=== PATIENT | female | born 1990 | race Two or more races ===

== ENCOUNTER 2016-08-03 04:39 | Inpatient (IN) | payer OTHER ==
[~2016-08-03 04:39] MED LIST: CITRIC ACID/SODIUM CITRATE 30 ML UNIT-DOSE CUP PO ONE; ELECTROLYTE-148 SOLN 500 ML IV SCH
[2016-08-03] MEDS ORDERED: ELECTROLYTE-148 SOLN 1,000 ML IV SCH (05:09)
[2016-08-03 05:24] VITALS: BMI 52.1
--- NOTE | 2016-08-03 06:30 | HP ---
Past Medical History - Admission Chief Complaint: "I broke my water" History of Present Illness: 26 y/o with SIUP at 39.3 weeks gestation here with complaints of rupturing her membranes for clear fluid at 420 this a.m. Pt was scheduled for a repeat section today - has h/o previous section X 2. Pt has history of pre Eclampsia with prior - none this . Had one isolated mildly elevated BP on 07/26/16. Was on baby ASA intermittently. Did follow with MFM. EFW on most recent ultrasound on 07/18/16 showed 63%ile/ 6lb 12oz. Pt is RH negative. GBS negative. HIV negative. HepBSag negative. RPR negative. Rubella Immune. History Source: Patient, Medical Record Limitations to Obtaining History: No Limitations - Past Medical History Cardiovascular: Yes: HTN (h/o pre eclampsia/gestational hypertension with prior pregnancies) Pulmonary: No: Asthma, Bronchitis, Pneumonia Gastrointestinal: No: GERD Hepatobiliary: No: Hepatitis B Reproductive: No: Ectopic , Endometriosis, Fibroids, PID ...: 6 ...Para: 2 ...Term: 1 ...: 1 ...Spon : 2 ...Induced : 1 ...Multiple Gestation: 0 ...LMP: 11/17/15 ...EDC by Sono: 08/07/16 Heme/Onc: No: Anemia, Sickle Cell Disease Infectious Disease: No: AIDS, HIV, MRSA Psych: No: Anxiety, Bipolar, Depression Rheumatology: No: Lupus, Rheumatoid Arthritis ENT: No: Allergic Rhinitis Endocrine: No: Diabetes Mellitus, Hypothyroidism Additional Medical History: Obesity - Past Surgical History Past Surgical History: Yes: Hx Myomectomy: No Hx Transabdominal Cerclage: No - Smoking History Smoking history: Never smoked Have you smoked in the past 12 months: No Aproximately how many cigarettes per day: 0 - Alcohol/Substance Use Hx Alcohol Use: No History of Substance Use: reports: None - Social History Usual Living Arrangement: Yes: With Spouse, Assisted Living ADL: Independent History of Recent Travel: No Home Medications - Allergies Allergies/Adverse Reactions: Allergies Allergy/AdvReac Type Severity Reaction Status Date / Time shellfish derived Allergy Mild pruritis Verified 08/03/16 05:04 shrimp Allergy Verified 08/03/16 05:25 - Home Medications Home Medications: Ambulatory Orders Vitamins (Sjr) - 1 tab PO DAILY 08/03/16 Review of Systems - Review of Systems Constitutional: reports: No Symptoms Eyes: reports: No Symptoms HENT: reports: No Symptoms Neck: reports: No Symptoms Cardiovascular: reports: No Symptoms Respiratory: reports: No Symptoms Gastrointestinal: reports: No Symptoms Genitourinary: reports: Discharge (leaking clear fluid). denies: Vaginal Bleeding Breasts: reports: No Symptoms Reported Musculoskeletal: reports: No Symptoms Integumentary: reports: No Symptoms Neurological: reports: No Symptoms Endocrine: reports: No Symptoms Hematology/Lymphatic: reports: No Symptoms Psychiatric: reports: No Symptoms Physical Exam - Maternity Vital Signs: Vital Signs Temperature 98.0 F 08/03/16 05:14 Pulse Rate 84 08/03/16 06:00 Respiratory Rate 19 08/03/16 06:00 Blood Pressure 140/85 08/03/16 06:00 O2 Sat by Pulse Oximetry (%) Constitutional: Yes: Well Nourished, Calm HENT: Yes: Atraumatic, Normocephalic Neck: Yes: Supple, Trachea Midline Cardiovascular: Yes: Regular Rate and Rhythm Lungs: Clear to auscultation - Abdominal Exam/OB Fundal Height: 40 Number of Fetuses: Single Presentation: Vertex Contractions: Yes Regularity: Regular Intensity: Moderate Heart Rate (range): 125 Category: I Accelerations: Uniform Decelerations: None - Vaginal Exam/OB Vaginal Bleediing: No Amniotic Membrane Status: Ruptured Nitrazine Test: Positive Amniotic Fluid: Yes: Clear - Physical Exam Extremities: Yes: WNL Edema: Yes (1+ non pitting LE edema) Edema: LLE: 1+, RLE: 1+ Psychiatric: Yes: Alert, Oriented Hemorrhage Risk Assessment - Risk Factors Medium Risk Factors: Yes: Prior , uterine surgery,or multiple laparotomies, Obesity (BMI >40) Risk Score: 2 Risk Level: High Risk Problem List - Problems (1) Spontaneous rupture of amniotic membranes Code(s): [id number] - (2) Term , repeat Code(s): Z34.90 - ENCNTR FOR SUPRVSN OF NORMAL , UNSP, UNSP TRIMESTER (3) History of delivery Code(s): Z98.891 - HISTORY OF UTERINE SCAR FROM PREVIOUS SURGERY (4) Obesity affecting in third trimester Code(s): O99.213 - OBESITY COMPLICATING , THIRD TRIMESTER Assessment/Plan 26 y/o with SIUP at 39.3 weeks gestation, SROM and labor, history of prior section and was scheduled for repeat delivery today at 10am [facility] - plan for repeat section - nursing and anesthesia aware. Pt has been NPO since 11pm. Apply SCDs. Shave and prep abdomen. Insert taylor catheter. - consents signed, r/b/a discussed - GBS negative
[2016-08-03] MEDS ORDERED: oxyCODONE HCL 5 MG TABLET PO PRN ×2 (08:22)
[2016-08-03] MEDS ORDERED: IBUPROFEN 800 MG/8 ML IJ IVPB PRN ×2 (08:22→08:40)
[2016-08-03] MEDS ORDERED: METHYLERGONOVINE MALEATE 0.2 MG/1 ML AMP IM PRN (08:22)
--- NOTE | 2016-08-03 08:30 | OP ---
Operative Note - Note: Operative Date: 08/03/16 Pre-Operative Diagnosis: SIUP at 39.3 weeks gestation, SROM, labor, history of c section X 2 Operation: repeat low transverse c section Post-Operative Diagnosis: Same as Pre-op Surgeon: Maritza Kaur Diplomatic Officer: Johnny Us Anesthesiologist/SOLAR PANEL INSTALLER: Theodore Cabral Anesthesia: Spinal Specimens Removed: placenta Estimated Blood Loss (mls): 700 Operative Report Dictated: Yes
[2016-08-03] MEDS ORDERED: ONDANSETRON 4 MG/2 ML VIAL IVPUSH PRN (08:41)
[2016-08-03] MEDS: OXYTOCIN 20 UNITS in 0.9% NS 1,000 ML IV SCH ×2 (09:42→15:03)
[2016-08-03] MEDS ORDERED: ENOXAPARIN NA (PORCINE) 40 MG/0.4 ML DISP.SYRIN SQ SCH (10:00)
[2016-08-03] MEDS ORDERED: TUBERCULIN PPD 5 TU/0.1ML SYRINGE (IN PATIENT USE ONLY) ID ONE (10:00)
[2016-08-03] MEDS: FERROUS SO4 325 MG TABLET (FP) PO SCH ×2 (10:16→22:24)
[2016-08-03] MEDS: PRENATAL VITAMINS W/ FOLIC ACID TABLET (FP) PO SCH (10:16)
--- NOTE | 2016-08-03 12:10 | SURG ---
Surgery Religion Professor Note Religion Professor: Johnny Us PA-C Date of Service: 08/03/16 Diagnosis: SIUP at 39.3 weeks gestation, SROM, labor, history of c section X 2 Procedure: R epeat low transverse c section I was present for the entirety of the operative procedure. For further detail, please refer to operative report. Visit type - Case Type Case Type: Scheduled Admission - New patient This patient is new to me today: Yes Date on this admission: 08/03/16
--- NOTE | 2016-08-03 14:01 | OP ---
DATE OF OPERATION: 08/03/2016 PREOPERATIVE DIAGNOSES: Single intrauterine at 39+ weeks gestation, history of section x2, and spontaneous rupture of membranes in labor. POSTOPERATIVE DIAGNOSES: Single intrauterine at 39+ weeks gestation, history of section x2, and spontaneous rupture of membranes in labor. PROCEDURE: Repeat low transverse section. SURGEON: Maritza Romano DO HEALTH PROFESSIONAL: MARIAA Escobar ESTIMATED BLOOD LOSS: 700 mL. ANESTHESIA: Spinal anesthesia by Dr. Theodore Cabral. SPECIMENS REMOVED: Included placenta. FINDINGS: Included normal bilateral tubes and ovaries. COMPLICATIONS: None. COUNTS: Sponge, needle, and instrument count correct. DISPOSITION: Stable to PACU. BRIEF HISTORY AND PROCEDURE: Patient is a 26-year-old female who arrived to labor and delivery on the morning of August 03, 2016, complaining of leaking fluid. Patient was found to have spontaneous rupture of membranes. Patient was scheduled for a repeat earlier in the day. Patient was admitted to the hospital and plan was made to proceed with a section. Consents were signed. The patient was then taken back to the operating room and she was given spinal anesthesia by Dr. Theodore Cabral and placed in the dorsal supine position on the operating room table. A Woods catheter was placed under sterile conditions. Patient was prepped and draped in the usual sterile fashion and a hard timeout was performed. A Pfannenstiel skin incision was created in the skin with a scalpel and carried to the underlying layer of rectus fascia with the Bovie. The fascia was incised on either side of the midline and the fascial incision was carried in a superolateral direction with the Bovie. The fascia was tented upward and dissected off the underlying layer of rectus muscle with the Bovie. The musculature was bluntly and the peritoneum was entered sharply to allow for adequate room for delivery. A bladder blade was then inserted. A bladder flap was created and the bladder blade was readjusted to protect the bladder. A transverse incision in the lower uterine segment was completed with a scalpel and the incision was carried in a superolateral direction bluntly. The was then delivered from the ROT position. A loose nuchal cord was noted. The remainder of the , including bilateral shoulders, delivered without difficulty. The 3-vessel cord was noted which was clamped and cut. The was then taken over to the warmer to be assessed by the nursing staff where the Apgars were 9 and 9. Female was noted to weigh 7 pounds 4 ounces and was 19 inches long. Attention was then turned to the placenta which was delivered manually and intact. The uterus was exteriorized from the abdomen, inspected, and cleared of all amniotic membrane and debris with a dry lap sponge. Bilateral tubes and ovaries were noted to be within normal limits. The hysterotomy was reapproximated using 1 Vicryl in a running locked fashion. The posterior cul-de-sac was suctioned. Bilateral tubes and ovaries again were noted to be normal. The uterus was placed back into the abdomen. Inspection of the hysterotomy revealed some areas of bleeding, so a 2nd imbricating layer with 0 Biosyn suture was completed. Excellent hemostasis was achieved. Bilateral gutters were inspected and cleared of all debris and blood clot. The peritoneum was reapproximated using 2-0 chromic suture in a running fashion. The musculature was reapproximated in a single interrupted suture using 0 Biosyn suture. The fascia was reapproximated using 1 Vicryl in a running locked fashion. The subcutaneous tissue was irrigated and reapproximated using interrupted sutures and the skin was reapproximated using ciaran. Patient tolerated the procedure well. Was recovering in stable condition in the unit at the time of this dictation. MARITZA ROMANO DO /[id number]
[2016-08-04] MEDS ORDERED: BISACODYL 10 MG SUPP.RECT RC PRN (08:26)
[2016-08-04 08:47] LABS: BASOPHIL 0.3 % (0-2.0); EOSINOPHIL 0.5 % (0-4.5); MCH 28.8 pg (25.7-33.7); MCHC 33.5 g/dl (32.0-36.0); MEAN CELL VOLUME 85.7 fl (80-96); MEAN PLT VOLUME 9.9 fl (7.5-11.1); NEUTROPHILS 75.7 % (42.8-82.8); PLATELET COUNT 189 K/MM3 (134-434); RDW 14.2 % (11.6-15.6); WHITE BLOOD COUNT 9.5 K/mm3 (4.0-10.0)
[2016-08-04] MEDS: FERROUS SO4 325 MG TABLET (FP) PO SCH ×2 (09:15→21:15)
[2016-08-04] MEDS: PRENATAL VITAMINS W/ FOLIC ACID TABLET (FP) PO SCH (09:15)
[2016-08-04] MEDS: ENOXAPARIN NA (PORCINE) 40 MG/0.4 ML DISP.SYRIN SQ SCH (09:16)
--- NOTE | 2016-08-04 09:16 | PN ---
Post Progress Note - Subjective Subjective: PT seen/evaluated and doing well. Pain controlled. OOB ambulating without difficulty. Lochia moderate and decreasing. Denies CP/SOB/F/C/PIERRE. No flatus yet. No void yet. Type of Delivery: Repeat C/S Vital Signs: Vital Signs Temperature 98 F 08/04/16 06:00 Pulse Rate 76 08/04/16 06:00 Respiratory Rate 18 08/04/16 07:00 Blood Pressure 121/66 08/04/16 06:00 O2 Sat by Pulse Oximetry (%) 99 08/03/16 09:41 Uterus: Yes: Fundus Firm, Fundus below umbilicus Incision: Yes: Dressing dry and intact Abdomen/GI: Yes: Abdomen soft, Tolerating PO. No: Tender Lochia, amount: Moderate Extremities: Yes: Edema (LE edema, +1, nonpitting bilaterally) Perineum: Yes: Intact Activity: Ambulating - Labs Labs: CBC WBC 9.5 K/mm3 (4.0-10.0) 08/04/16 08:00 RBC 4.16 M/mm3 (3.60-5.2) 08/04/16 08:00 Hgb 11.9 GM/dL (10.7-15.3) 08/04/16 08:00 Hct 35.6 % (32.4-45.2) 08/04/16 08:00 MCV 85.7 fl (80-96) 08/04/16 08:00 MCHC 33.5 g/dl (32.0-36.0) 08/04/16 08:00 RDW 14.2 % (11.6-15.6) 08/04/16 08:00 Plt Count 189 K/MM3 (134-434) 08/04/16 08:00 MPV 9.9 fl (7.5-11.1) 08/04/16 08:00 Neutrophils % 75.7 % (42.8-82.8) 08/04/16 08:00 Lymphocytes % 19.2 % (8-40) 08/04/16 08:00 Monocytes % 4.3 % (3.8-10.2) 08/04/16 08:00 Eosinophils % 0.5 % (0-4.5) 08/04/16 08:00 Basophils % 0.3 % (0-2.0) 08/04/16 08:00 Problem List - Problems (1) Spontaneous rupture of amniotic membranes Code(s): JWF1604 - (2) Term , repeat Code(s): Z34.90 - ENCNTR FOR SUPRVSN OF NORMAL , UNSP, UNSP TRIMESTER (3) History of delivery Code(s): Z98.891 - HISTORY OF UTERINE SCAR FROM PREVIOUS SURGERY (4) Obesity affecting in third trimester Code(s): O99.213 - OBESITY COMPLICATING , THIRD TRIMESTER Assessment/Plan 26 y/o POD#1 s/p repeat LTCS - AFVSS - Hgb 11.9 post op - encourage ambulation, Lovenox for VTE PPx - regular diet, PO pain meds - routine care
--- NOTE | 2016-08-04 10:36 | PN ---
Progress Note (short form) - Note Progress Note: ANESTHESIOLOGY POST-OP CHECK 26F s/p repeat under spinal anesthesia POD #1. No acute complaints, ambulating, pain tolerable, voiding. Denies N/V, backache, headache, numbness, weakness. Vital Signs Temperature 97.8 F 08/04/16 10:00 Pulse Rate 90 08/04/16 10:00 Respiratory Rate 20 08/04/16 10:00 Blood Pressure 130/80 08/04/16 10:00 O2 Sat by Pulse Oximetry (%) 99 08/03/16 09:41 Active Medications Acetaminophen (Tylenol -) 650 mg PO Q4H PRN PRN Reason: FEVER OR PAIN Bisacodyl (Dulcolax Suppository -) 10 mg RC PRN PRN PRN Reason: CONSTIPATION Diphenhydramine HCl (Benadryl Injection -) 25 mg IVPUSH Q4H PRN PRN Reason: itching Last Admin: 08/03/16 10:18 Dose: 25 mg Enoxaparin Sodium (Lovenox -) 40 mg SQ DAILY [facility] Last Admin: 08/04/16 09:16 Dose: 40 mg Ferrous Sulfate (Feosol -) 325 mg PO BID [facility] Last Admin: 08/04/16 09:15 Dose: 325 mg Parenteral Electrolytes (Plasma-Lyte 148 -) 1,000 mls @ 125 mls/hr IV ASDIR [facility] Last Admin: 08/03/16 06:00 Dose: 125 mls/hr Oxytocin/Sodium Chloride (Normal Saline+20 Units Oxytocin -) 1,000 mls @ 125 mls/hr IV ASDIR [facility] Last Admin: 08/03/16 15:03 Dose: 125 mls/hr Ibuprofen (Motrin -) 600 mg PO Q4H PRN PRN Reason: PAIN Ibuprofen (Caldolor Injection -) 800 mg IVPB Q8H PRN PRN Reason: PAIN OR FEVER Last Admin: 08/03/16 23:56 Dose: 800 mg Methylergonovine Maleate (Methergine Injection -) 0.2 mg IM Q4H PRN PRN Reason: Excessive Bleeding (L&D) Last Admin: 08/03/16 10:36 Dose: 0.2 mg Oxycodone HCl (Roxicodone -) 5 mg PO Q4H PRN PRN Reason: PAIN LEVEL 1-5 Oxycodone HCl (Roxicodone -) 10 mg PO Q4H PRN PRN Reason: PAIN LEVEL 6-10 Multivit/Folic Acid/Iron ( Vitamins (Sjr) -) 1 tab PO DAILY [facility] Last Admin: 08/04/16 09:15 Dose: 1 tab Senna/Docusate Sodium (Pericolace -) 2 tablet PO HS PRN PRN Reason: CONSTIPATION Simethicone (Mylicon -) 80 mg PO Q4H PRN PRN Reason: GAS Gen: awake, alert No apparent anesthesia complications. Pain controlled. continue management as per primary team.
[2016-08-04] MEDS: ACETAMINOPHEN 325 MG TABLET (FP) PO PRN ×2 (15:08→21:16)
[2016-08-04] MEDS: SIMETHICONE 80 MG TAB.CHEW (FP) PO PRN (15:09)
--- NOTE | 2016-08-04 15:25 | PATH ---
Surgical Pathology Report Patient Name: MARK ESTES Med. Rec. #: [id number] /Age/Gender: 1990 (Age: 26) / F Account: [id number] Location: [facility] OBS/TOP HAT BODY MAKER Taken: 08/03/2016 Received: 08/03/2016 Reported: 08/04/2016 Physicians: Maritza Kaur M.D. Specimen(s) Received PLACENTA Clinical History , 39.3 weeks gestation, previous c/section in labor Repeat c/section Final Diagnosis PLACENTA, DELIVERY: FOCALLY DISRUPTED THIRD TRIMESTER PLACENTA WITH CHRONIC DECIDUITIS, MODERATE PREVILLOUS, PERIVILLOUS, AND PRECHORIONIC FIBRIN DEPOSITION, FOCAL CALCIFICATIONS, TWO VESSEL UMBILICAL CORD, AND UNREMARKABLE PLACENTAL MEMBRANES. Electronically Signed Herve Guzman M.D. Gross Description The specimen is received fresh, labeled "placenta" and is a 420 gram, 18.5 x 15.5 x 1.7 cm placenta with attached membranes and umbilical cord. The attached membranes are sumner, translucent with focal opacities and insert marginally. The umbilical cord measures 31 cm in length and averages 0.9 cm in diameter. The cord inserts eccentrically, 5 cm to the nearest margin. No true knots or strictures are identified. Cut surface of the umbilical cord reveals only 2 vessels. The surface is ponce-blue with fibrin deposition and appropriate caliber vessels. The maternal surface is red-brown with focal defects. Sectioning reveals red-brown, spongy parenchyma. No focal lesions are identified. Air Traffic Control Equipment Repairer sections are submitted in three cassettes as follows: 1- membrane rolls and umbilical cord; 2-3- full thickness sections of placenta. /08/03/2016 saudi/08/03/2016
[2016-08-04] MEDS: IBUPROFEN 600 MG TABLET (FP) PO PRN (21:16)
[2016-08-05] MEDS: IBUPROFEN 600 MG TABLET (FP) PO PRN ×2 (08:12→21:22)
[2016-08-05] MEDS: SIMETHICONE 80 MG TAB.CHEW (FP) PO PRN ×2 (08:12→21:21)
[2016-08-05] MEDS: ACETAMINOPHEN 325 MG TABLET (FP) PO PRN ×2 (08:13→21:21)
[2016-08-05] MEDS: PRENATAL VITAMINS W/ FOLIC ACID TABLET (FP) PO SCH (09:41)
[2016-08-05] MEDS: ENOXAPARIN NA (PORCINE) 40 MG/0.4 ML DISP.SYRIN SQ SCH (09:41)
[2016-08-05] MEDS: FERROUS SO4 325 MG TABLET (FP) PO SCH ×2 (09:43→21:21)
--- NOTE | 2016-08-05 10:28 | PN ---
Post Progress Note - Subjective Subjective: 26 yo Para 3, status post repeat , seen and evaluated. Doing well. Type of Delivery: Repeat C/S Vital Signs: Vital Signs Temperature 98.2 F 08/05/16 09:24 Pulse Rate 89 08/05/16 09:24 Respiratory Rate 20 08/05/16 09:24 Blood Pressure 120/79 08/05/16 09:24 O2 Sat by Pulse Oximetry (%) 99 08/03/16 09:41 Breast Exam: Yes: Soft Uterus: Yes: Fundus Firm Incision: Yes: Dressing dry and intact Abdomen/GI: Yes: Abdomen soft, Tolerating PO Lochia: Yes: Rubra Lochia, amount: Small Extremities: Yes: Calves non-tender Perineum: Yes: Intact Activity: Ambulating - Labs Labs: CBC WBC 9.5 K/mm3 (4.0-10.0) 08/04/16 08:00 RBC 4.16 M/mm3 (3.60-5.2) 08/04/16 08:00 Hgb 11.9 GM/dL (10.7-15.3) 08/04/16 08:00 Hct 35.6 % (32.4-45.2) 08/04/16 08:00 MCV 85.7 fl (80-96) 08/04/16 08:00 MCHC 33.5 g/dl (32.0-36.0) 08/04/16 08:00 RDW 14.2 % (11.6-15.6) 08/04/16 08:00 Plt Count 189 K/MM3 (134-434) 08/04/16 08:00 MPV 9.9 fl (7.5-11.1) 08/04/16 08:00 Neutrophils % 75.7 % (42.8-82.8) 08/04/16 08:00 Lymphocytes % 19.2 % (8-40) 08/04/16 08:00 Monocytes % 4.3 % (3.8-10.2) 08/04/16 08:00 Eosinophils % 0.5 % (0-4.5) 08/04/16 08:00 Basophils % 0.3 % (0-2.0) 08/04/16 08:00 Problem List - Problems (1) Status post repeat low transverse section Code(s): Z98.891 - HISTORY OF UTERINE SCAR FROM PREVIOUS SURGERY Assessment/Plan Status post Stable Continue routine post op care
[2016-08-06 07:34] LABS: BASOPHIL 0.5 % (0-2.0); EOSINOPHIL 2.6 % (0-4.5); MCH 28.9 pg (25.7-33.7); MCHC 33.8 g/dl (32.0-36.0); MEAN CELL VOLUME 85.3 fl (80-96); MEAN PLT VOLUME 9.5 fl (7.5-11.1); NEUTROPHILS 58.2 % (42.8-82.8); PLATELET COUNT 198 K/MM3 (134-434); RDW 14.1 % (11.6-15.6); WHITE BLOOD COUNT 7.3 K/mm3 (4.0-10.0)
--- NOTE | 2016-08-06 09:04 | PN ---
Progress Note, Physician Chief Complaint: s/p delivery condition is stable she offers nd complaints - Current Medication List Current Medications: Active Medications Acetaminophen (Tylenol -) 650 mg PO Q4H PRN PRN Reason: FEVER OR PAIN Last Admin: 08/05/16 21:21 Dose: 650 mg Bisacodyl (Dulcolax Suppository -) 10 mg RC PRN PRN PRN Reason: CONSTIPATION Diphenhydramine HCl (Benadryl Injection -) 25 mg IVPUSH Q4H PRN PRN Reason: itching Last Admin: 08/03/16 10:18 Dose: 25 mg Enoxaparin Sodium (Lovenox -) 40 mg SQ DAILY [facility] Last Admin: 08/05/16 09:41 Dose: 40 mg Ferrous Sulfate (Feosol -) 325 mg PO BID [facility] Last Admin: 08/05/16 21:21 Dose: 325 mg Ibuprofen (Motrin -) 600 mg PO Q4H PRN PRN Reason: PAIN Last Admin: 08/05/16 21:22 Dose: 600 mg Ibuprofen (Caldolor Injection -) 800 mg IVPB Q8H PRN PRN Reason: PAIN OR FEVER Last Admin: 08/03/16 23:56 Dose: 800 mg Methylergonovine Maleate (Methergine Injection -) 0.2 mg IM Q4H PRN PRN Reason: Excessive Bleeding (L&D) Last Admin: 08/03/16 10:36 Dose: 0.2 mg Multivit/Folic Acid/Iron ( Vitamins (Sjr) -) 1 tab PO DAILY [facility] Last Admin: 08/05/16 09:41 Dose: 1 tab Senna/Docusate Sodium (Pericolace -) 2 tablet PO HS PRN PRN Reason: CONSTIPATION Last Admin: 08/04/16 21:15 Dose: 2 tablet Simethicone (Mylicon -) 80 mg PO Q4H PRN PRN Reason: GAS Last Admin: 08/05/16 21:21 Dose: 80 mg - Objective Vital Signs: Vital Signs Temperature 98.0 F 08/05/16 22:00 Pulse Rate 85 08/05/16 22:00 Respiratory Rate 20 08/05/16 22:00 Blood Pressure 141/77 08/05/16 22:00 O2 Sat by Pulse Oximetry (%) 99 08/03/16 09:41 Constitutional: Yes: Well Nourished, No Distress Eyes: Yes: WNL HENT: Yes: WNL Neck: Yes: WNL Cardiovascular: Yes: WNL, Regular Rate and Rhythm Respiratory: Yes: WNL, Regular Gastrointestinal: Yes: WNL, Normal Bowel Sounds ...Rectal Exam: Yes: WNL Genitourinary: Yes: WNL Breast(s): Yes: WNL Musculoskeletal: Yes: WNL Extremities: Yes: WNL Edema: No Peripheral Pulses WNL: Yes Wound/Incision: Yes: Clean/Dry Neurological: Yes: Alert, Oriented ...Motor Strength: WNL Psychiatric: Yes: Alert, Oriented Labs: CBC, BMP 08/06/16 06:10 Assessment/Plan condition stable plan to discharge home today f.u in four to six weeks continue vitamins
[2016-08-06] MEDS: FERROUS SO4 325 MG TABLET (FP) PO SCH (09:16)
[2016-08-06] MEDS: ENOXAPARIN NA (PORCINE) 40 MG/0.4 ML DISP.SYRIN SQ SCH (09:16)
[2016-08-06] MEDS: PRENATAL VITAMINS W/ FOLIC ACID TABLET (FP) PO SCH (09:16)
[2016-08-06 09:34] VITALS: BP 135/80; PULSE 73; TEMP 98.1
--- NOTE | 2016-08-06 14:02 | DS ---
Physical Exam-COUNSELING CENTER MANAGER Vital Signs: Vital Signs Temperature 98.1 F 08/06/16 09:33 Pulse Rate 73 08/06/16 09:33 Respiratory Rate 20 08/06/16 09:33 Blood Pressure 135/80 08/06/16 09:33 O2 Sat by Pulse Oximetry (%) 99 08/06/16 09:00 Labs: CBC, BMP 08/06/16 06:10 Delivery - Delivery Section: Repeat, Low Flap Transverse Type of Anesthesia: Spinal Episiotomy/Laceration: None EBL (cc): 700 Delivery, Single - Stages of Labor Date 1st Stage Initiatied: 08/03/16 Time 1st Stage Initiated: 04:30 Date of Delivery: 08/03/16 Time of Delivery: 07:49 Time Placenta Delivered: 07:50 Placenta: Yes: Manual Removal - Condition of Infant Radio Reporter/Health Safety Coordinator Present: No Infant Gender: Female Weight: 7 lb 4 oz Total Hours ROM (Hrs/Mins): 3/30 - 1 Minute Total Score: 9 5 Minutes Total Score: 9 - [place] Feeding Plan Initial Plan: Exclusive throughout hospitalization Discharge Summary Reason For Visit: SCHEDULED C/S IN LABOR Procedures: Principal: repeat low transverse section Hospital Course: Patient admitted on 08/03/2016 with complains of spontaneous rupture of membranes and labor pains/contractions. The patient was scheduled for a repeat section later that day. The patient was admitted and then underwent an uncomplicated repeat delivery - please see operative report for details of procedure. The patient was recovering well. On post op day 1 the patient was voiding, passing flatus, tolerating diet and ambulating. The patient was deemed stable for discharge home post op day 3 and was discharged home in stable condition. Condition: Good - Instructions Diet, Activity, Other Instructions: regular diet continue vitamins f.u with primary physician in 1 week for pain may use motrin or tylenol prn Referrals: Maritza Kaur DO [Family Provider] - Disposition: HOME - Home Medications Comprehensive Discharge Medication List: Ambulatory Orders Vitamins (Sjr) - 1 tab PO DAILY 08/03/16
== END 2016-08-06 10:54 | disposition home or self-care (01) | DRG 540 ==
LOC: JLDR 04:39 → J3W 09:36
PROVIDERS: ADMIT Obstetrics & Gynecology; ATTEND Obstetrics & Gynecology
PROC: 10D00Z1 Extraction of Products of Conception, Low, Open Approach (ICD-10-PCS; principal; 2016-08-03)
DX: O34.211 Maternal care for low transverse scar from previous cesarean delivery (principal); N85.8 Other specified noninflammatory disorders of uterus; Z3A.39 39 weeks gestation of pregnancy; O99.213 Obesity complicating pregnancy, third trimester; Z68.43 Body mass index [BMI] 50.0-59.9, adult; Z37.0 Single live birth
CPT/HCPCS: 36415; 80048; 85025; 85461; 85610; 85730; 86593; 86850; 86900; 86901; 86999; 88307-TC

== ENCOUNTER 2017-03-01 20:46 | Emergency (ER) | payer OTHER ==
--- NOTE | 2017-03-01 20:55 | PDOC ---
Rapid Medical Evaluation Time Seen by Provider: 03/01/17 20:47 Medical Evaluation: Allergies Allergy/AdvReac Type Severity Reaction Status Date / Time shellfish derived Allergy Mild pruritis Verified 08/03/16 05:04 shrimp Allergy Verified 08/03/16 05:25 03/01/17 20:47 The patient presents with a chief complaint of: Vaginal bleeding dark red blood with clots for 2 weeks, LMP within the last two weeks? I have performed a brief in-person evaluation of this patient; Pertinent physical exam findings: suprapubic tenderness I have ordered the following: CBC, CMP, Type and Screen UA, UC, Upreg The patient will proceed to the ED for further evaluation. Discharge Disposition - Diagnosis Vaginal bleeding - Referrals - Patient Instructions - Post Discharge Activity
[2017-03-01 21:07] VITALS: BMI 45.6
[2017-03-01 21:13] LABS: BASOPHIL 0.7 % (0-2.0); EOSINOPHIL 1.4 % (0-4.5); MCH 28.8 pg (25.7-33.7); MCHC 33.7 g/dl (32.0-36.0); MEAN CELL VOLUME 85.4 fl (80-96); MEAN PLT VOLUME 9.1 fl (7.5-11.1); NEUTROPHILS 64.7 % (42.8-82.8); PLATELET COUNT 271 K/MM3 (134-434); RDW 12.8 % (11.6-15.6); WHITE BLOOD COUNT 10.5 K/mm3 (4.0-10.0)
[2017-03-01 21:18] LABS: URINE APPEARANCE SLCLOUDY; URINE BILIRUBIN NEGATIVE (NEGATIVE); URINE BLOOD 3+ (NEGATIVE); URINE COLOR LTYELLOW; URINE GLUCOSE (UA) NEGATIVE (NEGATIVE); URINE KETONE NEGATIVE (NEGATIVE); URINE LEUK ESTERASE NEGATIVE (NEGATIVE); URINE NITRITE NEGATIVE (NEGATIVE); URINE PROTEIN NEGATIVE (NEGATIVE); URINE UROBILINOGEN NEGATIVE mg/dL (0.2-1.0)
[2017-03-01 21:23] LABS: URINE BACTERIA RARE /hpf (NONE SEEN); URINE MUCUS RARE; URINE RBC 7 /hpf (0-3); URINE WBC 4 /hpf (3-5)
[2017-03-01 21:36] LABS: ALBUMIN 3.9 g/dl (3.4-5.0); ALK PHOS 138 U/L (45-117); ANION GAP 7 (8-16); BILIRUBIN,TOTAL 0.3 mg/dL (0.2-1.0); CALCIUM 8.8 mg/dL (8.5-10.1); CO2 25 mmol/L (21-32); CREATININE 0.9 mg/dL (0.55-1.02); GLUCOSE,RANDOM 106 mg/dL (74-106); SGOT/AST 18 U/L (15-37); SGPT/ALT 38 U/L (12-78); TOT PROT 7.7 g/dl (6.4-8.2)
[2017-03-01 22:34] VITALS: BP 131/61; PULSE 99; TEMP 98.6
[2017-03-01] MEDS ORDERED: IBUPROFEN 600 MG TABLET (FP) PO ONE ×2 (22:37→23:00)
--- NOTE | 2017-03-01 22:37 | PDOC ---
Attending Attestation - HPI HPI: 03/01/17 22:40 The patient is a 26 year old female with no significant past medical history who presents to the ED complaining of approximately 2 weeks of vaginal bleeding with associated suprapubic cramps. No fever or chills. No vomiting or diarrhea. No chest pain, lightheadedness, or shortness of breath. - Physicial Exam PE: 03/01/17 22:43 Constitutional: Awake, alert, oriented. No acute distress. Head: Normocephalic. Atraumatic Eyes: PERRL. EOMI. Conjunctivae are not pale. ENT: Mucous membranes are moist and intact. Posterior pharynx without exudates or erythema. Uvula midline. Neck: Supple. Full ROM. No lymphadenopathy. Cardiovascular: Regular rate. Regular rhythm. S1, S2 regular. Distal pulses are 2+ and symmetric. Pulmonary/Chest: No evidence of respiratory distress. Clear to auscultation bilaterally No wheezing, rales or rhonchi. Abdominal: +Mild suprapubic tenderness to palpation. Soft. Obese. No rebound, guarding or rigidity. No organomegaly. No palpable masses. Good bowel sounds. Back: No CVA tenderness. Musculoskeletal: No edema. No cyanosis. No clubbing. Full range of motion in all extremities. Nocalf tenderness. Radial/pedal pulses are intact and 2+ bilaterally Skin: Skin is warm and dry. No petechiae. No purpura. Neurological: Alert and oriented to person, place, and time. Cranial nerves II -XII are grossly intact. Normal speech. Strength is grossly symmetric. No sensory deficits. Psychiatric: Good eye contact. Normal interaction, affect and behavior. Pelvic: Small amount of bleeding in the vaginal vault. No CMT. - Medical Decision Making 03/01/17 22:51 Documentation prepared by Jayda Padilla, acting as medical record consultant for Darcie Rodríguez DO. <Jayda Padilla - Last Filed: 03/01/17 22:39> - Resident Resident Name: Thalia Oglesby - ED Attending Attestation I have performed the following: I have examined & evaluated the patient, The case was reviewed & discussed with the resident, I agree w/resident's findings & plan, Exceptions are as noted - Medical Decision Making 03/01/17 22:36 a/p: 26yo female with vaginal bleeding x 2 weeks -labs -pelvic exam with minimal bleeding -pelvic ultrasound 03/02/17 01:17 pt labs and ultrasound reviewed. only bleeding through 1 pad per day. stable for d/c home discussed need for follow up with obgyn answered all quesitons <Darcie Rodríguez - Last Filed: 03/02/17 01:18>
--- NOTE | 2017-03-01 23:06 | PDOC ---
History of Present Illness - General Chief Complaint: Vaginal Bleeding Stated Complaint: VAGINAL BLEEDING Time Seen by Provider: 03/01/17 20:47 History Source: Patient Exam Limitations: No Limitations - History of Present Illness Initial Comments: This is a 26 YOF who is s/p three LTCS (last in July 2016) who presents with 2 weeks of increasing dark red vaginal bleeding with clots. She notes light spotting last week, but the bleeding was heavier this week and she was changing her menstrual pads anywhere between 1 and 4 times a day. She additionally notes continued 3/10 lower abdominal cramping around the site of her scar which has been present since the procedure in July. This pain is now radiating to her lower back which is new. She received a Depot shot in August and stopped bleeding altogether shortly after that until the past two weeks. She additionally notes mild bilateral leg numbness and weakness, as well as right axilla pain. She denies fever, chills, nausea, vomiting, diarrhea, constipation, vaginal discharge, passage of mucous or line producer-colored material, dysuria, chest pain, SOB, headache, or lightheadedness/dizziness. She is taking iron. She notes having tried to call her [facility] doctor today and yesterday but was told they were not in the office. Past History - Past Medical History Allergies/Adverse Reactions: Allergies Allergy/AdvReac Type Severity Reaction Status Date / Time shellfish derived Allergy Mild pruritis Verified 08/03/16 05:04 shrimp Allergy Verified 08/03/16 05:25 Home Medications: Ambulatory Orders NK [No Known Home Medication] 03/01/17 Asthma: No Cancer: No Cardiac Disorders: No COPD: No Diabetes: No HTN: No Seizures: No Thyroid Disease: No - Reproductive History Is Patient Now?: No (#): 6 Para: 3 Therapeutic (s) & number: Yes (1) Spontaneous : 2 - Immunization History Immunization Up to Date: Yes - Suicide/Smoking/Psychosocial Hx Smoking Status: No Smoking History: Current some day smoker Have you smoked in the past 12 months: No Number of Cigarettes Smoked Daily: 1 Information on smoking cessation initiated: No Hx Alcohol Use: No Drug/Substance Use Hx: No Substance Use Type: None Hx Substance Use Treatment: No Review of Systems - Review of Systems Able to Perform ROS?: Yes Constitutional: No: Chills, Fever, Unexplained wgt Loss HEENTM: No: Nose Congestion, Throat Pain Respiratory: No: Cough, Shortness of Breath Cardiac (ROS): No: Chest Pain, Palpitations ABD/GI: Yes: Abdominal cramping. No: Constipated, Diarrhea, Nausea, Vomiting : Yes: Other (vaginal bleeding). No: Burning, Dysuria, Hematuria Musculoskeletal: Yes: Back Pain (lower back). No: Neck Pain Integumentary: No: Bruising, Rash Neurological: Yes: Numbness (mild bilateral leg), Weakness (mild bilateral leg) . No: Headache, Tingling, Dizziness Endocrine: No: Unexplained Weight Gain, Unexplained Weight Loss *Physical Exam - Vital Signs Last Vital Signs Temp Pulse Resp BP Pulse Ox 98.6 F 99 H 18 131/61 99 03/01/17 22:31 03/01/17 22:31 03/01/17 22:31 03/01/17 22:31 03/01/17 22:31 - Physical Exam General Appearance: Yes: Nourished, Appropriately Dressed, Obese, Other ( pleasant adult female who answers appropriately, occasionally tearful). No: Apparent Distress HEENT: positive: EOMI, MISA, Normal Voice, Hearing Grossly Normal. negative: Scleral Icterus (R), Scleral Icterus (L), Nasal Congestion Neck: positive: Trachea midline, Supple. negative: Tender, Rigid Respiratory/Chest: positive: Lungs Clear, Normal Breath Sounds. negative: Respiratory Distress, Crackles, Rhonchi, Stridor, Wheezing Cardiovascular: positive: Regular Rhythm, Regular Rate. negative: Edema, Murmur Female Pelvic Exam: positive: normal external exam, cervical os closed, vaginal bleeding (small amount of dark red blood in the vaginal vault). negative: CMT, discharge, adnexal tenderness Gastrointestinal/Abdominal: positive: Normal Bowel Sounds, Tender (mild suprapubic tenderness to palpation), Soft. negative: Organomegaly, Pulsatile Mass, Guarding Musculoskeletal: positive: Normal Inspection. negative: CVA Tenderness, Decreased Range of Motion, Vertebral Tenderness Extremity: positive: Normal Capillary Refill, Normal Inspection, Normal Range of Motion. negative: Tender, Cyanosis, Swelling Integumentary: positive: Normal Color, Dry, Warm. negative: Erythema, Rash, Bruising Neurologic: positive: nut cracker II-XII NML intact (grossly), Fully Oriented, Alert, Normal Mood/Affect, Normal Response, Motor Strength 5/5. negative: Sensory Deficit ED Treatment Course - LABORATORY CBC & Chemistry Diagram: 03/01/17 19:00 03/01/17 19:00 - ADDITIONAL ORDERS Additional order review: Laboratory Results 03/01/17 03/01/17 19:00 19:00 Sodium 138 Potassium 4.2 Chloride 106 Carbon Dioxide 25 Anion Gap 7 L BUN 11 D Creatinine 0.9 D Creat Clearance w eGFR > 60 Random Glucose 106 D Calcium 8.8 Total Bilirubin 0.3 D AST 18 D ALT 38 D Alkaline Phosphatase 138 H D Total Protein 7.7 Albumin 3.9 D Urine Color Ltyellow Urine Appearance Slcloudy Urine pH 6.0 Ur Specific [place] 1.006 Urine Protein Negative Urine Glucose (UA) Negative Urine Ketones Negative Urine Blood 3+ H Urine Nitrite Negative Urine Bilirubin Negative Urine Urobilinogen Negative Urine WBC (Auto) 4 Urine RBC (Auto) 7 Ur Epithelial Cells Rare Urine Bacteria Rare Urine Mucus Rare Urine HCG, Qual Negative 03/01/17 19:00 RBC 4.77 D MCV 85.4 MCHC 33.7 RDW 12.8 MPV 9.1 Neutrophils % 64.7 Lymphocytes % 27.9 Monocytes % 5.3 Eosinophils % 1.4 Basophils % 0.7 Medical Decision Making - Medical Decision Making 26 YOF who is and s/p LTCS x3 who p/w vaginal bleeding and continued suprapubic pain now with low back pain. VS within normal limits, patient appears well and nontoxic, a bit tearful but answering appropriately. Mild suprapubic ttp but otherwise unremarkable abdominal exam, pelvic with os closed, small blood, no tenderness. DDX IBNLT hormone variation affecting menstruation, menorrhagia, dysmenorrhea, endometriosis, miscarriage, etc. Ordered from [facility] are CBCD, CMP, UA cx hCG. 03/01/17 23:16 Slight white count likely 2/2 pain or stress response. Slight elevated alkaline phosphatase is nonspecific w/o other transaminase elevation. UA is negative and hCG is negative. US transvaginal shows slightly thickened endometrium and small fluid in cervical canal. Clinical picture and workup consistent with menstrual period. First full menstruation after childbirth and depot shot likely to be atypical of her normal menstruation. I did speak with the patient about her home situation. She lives with her three children and . She feels safe at home. The patient is appropriate for discharge home with close OP followup. Return precautions are discussed, she will take OTC pain meds for cramping. *DC/Admit/Observation/Transfer Diagnosis at time of Disposition: Vaginal bleeding - Discharge Dispostion Disposition: HOME Condition at time of disposition: Stable Admit: No - Referrals - Patient Instructions Printed Discharge Instructions: Heavy Menstrual Bleeding Additional Instructions: You were seen in the ER for vaginal bleeding and menstrual cramping with back cramping too. We did a pelvic exam showing no abnormalities. We did blood and urine laboratories and a pelvic ultrasound, and there were no abnormal findings. We believe this is a menstrual period with some spotting just before the period. Oftentimes after childbirth and the Depot shot it can take several menstrual periods to return to your regular pattern of menstrual periods. Please take Motrin or naproxen for abdominal cramping. Please follow up with your [facility] doctor or your primary doctor, or return to the ER for any new or worsening symptoms like severe pain you cannot control with OTC pain medications and hot packs, fever, headache, dizziness, chest pain, shortness of breath, or other symptoms. - Post Discharge Activity
[2017-03-02 12:13] LABS: URINE LEUK ESTERASE Negative (NEGATIVE)
== END 2017-03-01 23:34 | disposition home or self-care (01) ==
LOC: JER 20:46
DX: N93.8 Other specified abnormal uterine and vaginal bleeding (principal)
CPT/HCPCS: 36415; 76830-TC; 80053; 81003; 81015; 84703; 85025; 86850; 86900; 86901; 87086; 99281-25

== ENCOUNTER 2018-10-15 22:14 | Emergency (ER) | payer OTHER ==
[2018-10-15 22:31] VITALS: TEMP 98.1; BMI 47.0
--- NOTE | 2018-10-15 23:27 | PDOC ---
*Physical Exam - Vital Signs Last Vital Signs Temp Pulse Resp BP Pulse Ox 98.1 F 83 20 126/79 97 10/15/18 22:16 10/15/18 22:16 10/15/18 22:16 10/15/18 22:16 10/15/18 22:16 Medical Decision Making - Medical Decision Making 10/15/18 23:26 Patient seen by the advanced practice provider under my direct supervision. Ancillary testing reviewed as necessary. I agree with plan as outlined by the advanced practice provider. *DC/Admit/Observation/Transfer Diagnosis at time of Disposition: Flank pain - Discharge Dispostion Disposition: HOME - Referrals Referrals: Merari Knox MD [Primary Care Provider] - - Patient Instructions - Post Discharge Activity
--- NOTE | 2018-10-16 00:20 | PDOC ---
History of Present Illness - General Chief Complaint: Back Pain Stated Complaint: BACK PAIN Time Seen by Provider: 10/15/18 23:23 History Source: Patient - History of Present Illness Initial Comments: 10/16/18 00:41 28 year old female c/o right side rib pain worse movement for the last 2 months , patient seen in the ER 09/25 chest xray/ thoracic spine wnl . patient reports that she has gained 60 lbs in the last 2 years. patient reports that pain is worse with prolonged sitting and movement.patient was given muscle relaxer during the last ED visit, reports that it was not very effective. denies shortness of breath, cough, chest pain, flank pain. . Past History - Past Medical History Allergies/Adverse Reactions: Allergies Allergy/AdvReac Type Severity Reaction Status Date / Time shellfish derived Allergy Mild pruritis Verified 01/12/18 14:20 shrimp Allergy Verified 01/12/18 14:20 Home Medications: Ambulatory Orders NK [No Known Home Medication] 03/01/17 Asthma: No Cancer: No Cardiac Disorders: No COPD: No Diabetes: No HTN: No Seizures: No Thyroid Disease: No - Reproductive History (#): 6 Para: 3 Therapeutic (s) & number: Yes (1) Spontaneous : 2 - Immunization History Immunization Up to Date: Yes - Suicide/Smoking/Psychosocial Hx Smoking Status: No Smoking History: Current some day smoker Have you smoked in the past 12 months: Yes Number of Cigarettes Smoked Daily: 2 Information on smoking cessation initiated: Yes Hx Alcohol Use: No Drug/Substance Use Hx: No Substance Use Type: None Hx Substance Use Treatment: No Review of Systems - Review of Systems Able to Perform ROS?: Yes Is the patient limited Wolof proficient: No Constitutional: No: Symptoms Reported, See HPI, Chills, Diaphoresis, Fever, Loss of Appetite, Malaise, Night Sweats, Weakness, Weight Stable, Unintentional Wgt. Loss, Unexplained wgt Loss, Other Cardiac (ROS): Yes: Other (rib pain) *Physical Exam - Vital Signs Last Vital Signs Temp Pulse Resp BP Pulse Ox 98.1 F 83 20 126/79 97 10/15/18 22:16 10/15/18 22:16 10/15/18 22:16 10/15/18 22:16 10/15/18 22:16 - Physical Exam General Appearance: Yes: Appropriately Dressed Respiratory/Chest: positive: Chest Tender (right posterior rib/ thoracic area tenderness), Lungs Clear, Normal Breath Sounds Gastrointestinal/Abdominal: positive: Normal Bowel Sounds, Soft Musculoskeletal: positive: Normal Inspection Integumentary: positive: Normal Color, Dry, Warm Neurologic: positive: Fully Oriented, Alert, Normal Mood/Affect ED Treatment Course - LABORATORY CBC & Chemistry Diagram: 10/16/18 05:40 10/16/18 05:40 Progress Note - Progress Note Progress Note: A: rib pain/ musculoskeletal pain P: UA " +1 ketones ( not on her period) Medical Decision Making - Medical Decision Making 10/16/18 04:[address]: Dependent density in the gallbladder neck most likely due to sludge or cholelithiasis with moderate gallbladder distention may be associated with gallbladder dysmotility. If clinically indicated follow-up outpatient Nuclear Medicine Hepatobiliary Scan With slow 10 Minute Cholecystokinin Injection Gallbladder Ejection Fraction Calculation may be needed. Diverticulosis of the colon without diverticulitis. Mild hepatomegaly and mild nonspecific splenomegaly. Heterogeneous fundal uterine myometrium may be due to fibroids. Mild nonspecific bladder wall thickening may be due to infectious cystitis. Mild to moderate spinal canal narrowing and neural foraminal narrowing in the lower thoracic and lower lumbar levels. If clinically indicated follow-up outpatient MRI thoracic spine may be needed 10/16/18 06:22 A: back pain P: ct with multiple findings. awaiting us TO BETTER EVALUATE THE GALL BLADDER. 10/16/18 06:56 Patient signed out to Abraham LEROY. *DC/Admit/Observation/Transfer Diagnosis at time of Disposition: Flank pain Back pain Qualifiers: Back pain location: thoracic back pain Chronicity: acute Back pain laterality: right Qualified Code(s): M54.6 - Pain in thoracic spine - Referrals Referrals: Merari Knox MD [Primary Care Provider] - - Patient Instructions - Post Discharge Activity
[2018-10-16 00:37] LABS: EPI CELLS 2.3 /HPF (0-5/HPF); HYALINE CASTS 2 /lpf (0-8); URINE APPEARANCE CLEAR; URINE BACTERIA 148.2 /hpf (NEGATIVE); URINE BILIRUBIN NEGATIVE (NEGATIVE); URINE COLOR YELLOW; URINE GLUCOSE (UA) NEGATIVE (NEGATIVE); URINE KETONE NEGATIVE (NEGATIVE); URINE LEUK ESTERASE NEGATIVE (NEGATIVE); URINE NITRITE NEGATIVE (NEGATIVE); URINE PROTEIN NEGATIVE (NEGATIVE); URINE RBC 4 /hpf (0-4); URINE UROBILINOGEN 0.2 mg/dL (0.2-1.0); URINE WBC 1 /hpf (0-5)
[2018-10-16] MEDS ORDERED: KETOROLAC TROMETHAMINE 30 MG/1 ML VIAL IM ONE (01:23)
[2018-10-16] MEDS ORDERED: KETOROLAC TROMETHAMINE 30 MG/1 ML VIAL ONE (01:46)
[2018-10-16 05:50] LABS: BASO % 0.8 % (0-2.0); EOS % 1.8 % (0-4.5); HEMATOCRIT 37.9 % (32.4-45.2); HEMOGLOBIN 13.2 GM/dL (10.7-15.3); LYMPH % 42.3 % (8-40); MCH 29.8 pg (25.7-33.7); MCHC 34.7 g/dl (32.0-36.0); MEAN CELL VOLUME 85.9 fl (80-96); MEAN PLT VOLUME 9.3 fl (7.5-11.1); MONO % 6.8 % (3.8-10.2); NEUT % 48.3 % (42.8-82.8); PLATELET COUNT 231 K/MM3 (134-434); RBC 4.41 M/mm3 (3.60-5.2); WHITE BLOOD COUNT 6.5 K/mm3 (4.0-10.0)
[2018-10-16 06:14] LABS: ALBUMIN 3.9 g/dl (3.4-5.0); BILIRUBIN,TOTAL 0.4 mg/dL (0.2-1); BLOOD UREA NITROGEN 9.4 mg/dL (7-18); CALCIUM 8.9 mg/dL (8.5-10.1); CREATININE 0.9 mg/dL (0.55-1.3); POTASSIUM 3.9 mmol/L (3.5-5.1); TOT PROT 7.1 g/dl (6.4-8.2)
--- NOTE | 2018-10-16 07:15 | PDOC ---
*Physical Exam - Vital Signs Last Vital Signs Temp Pulse Resp BP Pulse Ox 98.1 F 80 20 126/89 96 10/16/18 02:35 10/16/18 02:35 10/16/18 02:35 10/16/18 02:35 10/16/18 02:35 - Physical Exam General Appearance: Yes: Nourished, Appropriately Dressed. No: Apparent Distress HEENT: positive: Normal ENT Inspection Neck: positive: Supple Respiratory/Chest: positive: Lungs Clear, Normal Breath Sounds. negative: Respiratory Distress, Accessory Muscle Use Cardiovascular: positive: Regular Rhythm, Regular Rate Gastrointestinal/Abdominal: positive: Normal Bowel Sounds, Flat, Soft. negative : Tender, Organomegaly Musculoskeletal: positive: Normal Inspection Extremity: positive: Normal Inspection Integumentary: positive: Normal Color Neurologic: positive: Fully Oriented, Alert, Normal Mood/Affect, Normal Response ED Treatment Course - LABORATORY CBC & Chemistry Diagram: 10/16/18 05:40 10/16/18 05:40 - ADDITIONAL ORDERS Additional order review: Laboratory Results 10/16/18 10/16/18 10/16/18 05:40 05:40 00:25 Sodium 139 Potassium 3.9 Chloride 105 Carbon Dioxide 28 Anion Gap 6 L BUN 9.4 Creatinine 0.9 Est GFR (CKD-EPI)AfAm 100.14 Est GFR (CKD-EPI)NonAf 86.41 Random Glucose 92 Calcium 8.9 Total Bilirubin 0.4 AST 23 ALT 50 Alkaline Phosphatase 89 Total Protein 7.1 Albumin 3.9 Lipase 72 L Urine Color Yellow Urine Appearance Clear Urine pH 5.0 D Ur Specific [place] 1.014 Urine Protein Negative Urine Glucose (UA) Negative Urine Ketones Negative Urine Blood 1+ H Urine Nitrite Negative Urine Bilirubin Negative Urine Urobilinogen 0.2 Ur Leukocyte Esterase Negative Urine WBC (Auto) 1 Urine RBC (Auto) 4 Urine Casts (Auto) 2 U Epithel Cells (Auto) 2.3 Urine Bacteria (Auto) 148.2 Urine HCG, Qual 10/16/18 00:25 Sodium Potassium Chloride Carbon Dioxide Anion Gap BUN Creatinine Est GFR (CKD-EPI)AfAm Est GFR (CKD-EPI)NonAf Random Glucose Calcium Total Bilirubin AST ALT Alkaline Phosphatase Total Protein Albumin Lipase Urine Color Urine Appearance Urine pH Ur Specific [place] Urine Protein Urine Glucose (UA) Urine Ketones Urine Blood Urine Nitrite Urine Bilirubin Urine Urobilinogen Ur Leukocyte Esterase Urine WBC (Auto) Urine RBC (Auto) Urine Casts (Auto) U Epithel Cells (Auto) Urine Bacteria (Auto) Urine HCG, Qual Negative 10/16/18 05:40 RBC 4.41 MCV 85.9 MCHC 34.7 RDW 13.0 MPV 9.3 Neutrophils % 48.3 D Lymphocytes % 42.3 H D Monocytes % 6.8 Eosinophils % 1.8 Basophils % 0.8 - Medications Given in the ED: ED Medications Discontinued Medications Generic Name Dose Route Start Last Admin Trade Name Freq PRN Reason Stop Dose Admin Ketorolac Tromethamine 30 mg 10/16/18 01:23 10/16/18 01:50 Toradol Injection - IM 10/16/18 01:24 30 mg ONCE ONE Administration Medical Decision Making - Medical Decision Making 10/16/18 07:16 I assumed care of this 28-year-old female presented with complaint of bilateral rib cage pain which has been persistent. CT scan done shows chronic compression fracture of T10 with possible gallbladder sludge and cholelithiasis. Patient pending abdominal ultrasound. Patient sleeping comfortably in bed in no acute distress. Will dispo based on ultrasound results.blood work labs unremarkable. 10/16/18 08:57 Abdominal ultrasound shows no cholelithiasis or cholecystitis or no sludge. Patient is stable for discharge on naproxen when necessary for repeat and with neurosurgery follow-up for thoracic spine fracture. Patient report has no pain at all now. Patient stable for discharge. *DC/Admit/Observation/Transfer Diagnosis at time of Disposition: Flank pain Back pain Qualifiers: Back pain location: thoracic back pain Chronicity: acute Back pain laterality: right Qualified Code(s): M54.6 - Pain in thoracic spine Thoracic spine fracture Qualifiers: Encounter type: initial encounter Thoracic vertebra fracture level: T12 Fracture type: closed Fracture morphology: unspecified fracture morphology Qualified Code(s): S22.089A - Unspecified fracture of T11-T12 vertebra, initial encounter for closed fracture - Discharge Dispostion Disposition: HOME Condition at time of disposition: Stable Decision to Admit order: No - Prescriptions Prescriptions: Naproxen 500 mg PO BID PRN #20 tablet PRN Reason: pain - Referrals Referrals: Pb May MD, [facility] [Staff Physician] - - Patient Instructions Printed Discharge Instructions: Intervertebral Discectomy Additional Instructions: Your CAT scan shows fracture of thoracic spine of T12.Take prescribed medication as needed fo pain. Your abdominal ultrasound is normal with no evidence of gallstone or gallbladder infection. Follow-up with referred orthopedics registration specialist for spine fracture as discussed. - Post Discharge Activity
[2018-10-16 08:39] VITALS: BP 113/77; PULSE 72
== END 2018-10-16 09:30 | disposition home or self-care (01) ==
LOC: JER 22:14
PROC: 3E0233Z Introduction of Anti-inflammatory into Muscle, Percutaneous Approach (ICD-10-PCS; principal; 2018-10-15)
DX: M54.6 Pain in thoracic spine (principal); M48.54XA Collapsed vertebra, not elsewhere classified, thoracic region, initial encounter for fracture; R10.9 Unspecified abdominal pain
CPT/HCPCS: 36415; 71046-TC-FY; 71101-TC-RT-FY; 74176-TC; 76705-TC; 80053; 81003; 83690; 84703; 85025; 96372; 99282-25